=== PATIENT | female | born 1995 ===

== ENCOUNTER 2018-02-16 13:18 | Emergency (ER) | payer OTHER, SELFPAY ==
--- NOTE | 2018-02-16 13:44 | ED PDOC ---
HPI: Abdomen Time Seen by Provider: 02/16/18 13:36 Chief Complaint (Nursing): Abdominal Pain History Per: Patient Onset/Duration Of Symptoms: Days (2) Current Symptoms Are (Timing): Still Present Severity: Moderate Location Of Pain/Discomfort: RLQ Quality Of Discomfort: Unable To Describe Associated Symptoms: Nausea. denies: Fever, Vomiting, Diarrhea, Urinary Symptoms Exacerbating Factors: None Alleviating Factors: None Additional Complaint(s): Referred by PMD for RLQ pain x 2 days. Nausea but no vomiting or diarrhea. No dysuria or fever. LMP Feb 02 Past Medical History Vital Signs: Last Vital Signs Temp 98.3 F 02/16/18 13:30 Pulse 68 02/16/18 13:30 Resp 17 02/16/18 13:30 BP 117/83 02/16/18 13:30 Pulse Ox 98 02/16/18 13:44 - Medical History PMH: No Chronic Diseases Denies: HIV - Family History Family History: States: Unknown Family Hx - Home Medications Home Medications: Ambulatory Orders Medication Instructions Recorded Folic Acid 1 mg PO DAILY #0 tab 12/04/14 Multimineral/Multivitamin 1 tab PO DAILY #0 tab 12/04/14 [Therapeutic-M Tab] Thiamine [Vitamin B1 Tab] 100 mg PO DAILY #0 tab 12/04/14 oxyCODONE/Acetaminophen [Percocet 1 tab PO Q6H PRN #15 tab 12/04/14 5/325 mg Tab] - Allergies Allergies/Adverse Reactions: Allergies Allergy/AdvReac Type Severity Reaction Status Date / Time No Known Allergies Allergy Verified 02/16/18 13:29 Review of Systems ROS Statement: Except As Marked, All Systems Reviewed And Found Negative Gastrointestinal: Positive for: Nausea, Abdominal Pain Physical Exam - Reviewed Nursing Documentation Reviewed: Yes Vital Signs Reviewed: Yes - Physical Exam Appears: Positive for: Non-toxic, No Acute Distress Head Exam: Positive for: ATRAUMATIC, NORMAL INSPECTION, NORMOCEPHALIC Skin: Positive for: Normal Color, Warm, DRY Eye Exam: Positive for: EOMI, Normal appearance, PERRL ENT: Positive for: Normal ENT Inspection Neck: Positive for: Normal, Painless ROM Cardiovascular/Chest: Positive for: Regular Rate, Rhythm Respiratory: Positive for: CNT, Normal Breath Sounds Gastrointestinal/Abdominal: Positive for: Soft, Tenderness (Lower quads bilat.) Back: Positive for: Normal Inspection Extremity: Positive for: Normal ROM Neurologic/Psych: Positive for: Alert, Oriented - Laboratory Results Result Diagrams: 02/16/18 14:04 02/16/18 14:04 - ECG O2 Sat by Pulse Oximetry: 98 Disposition - Clinical Impression Clinical Impression: Abdominal pain - Patient ED Disposition Is Patient to be Admitted: Transfer of Care - Disposition Disposition: Transfer of Care Disposition Time: 14:50 Condition: FAIR Forms: Personal Style Finder (Stateless) Patient Signed Over To: Kerri Rao
[2018-02-16 14:09] LABS: BASO # 0.1 K/uL (0.0-0.2); BASO % 0.8 % (0.0-2.0); EOS # 0.2 K/uL (0.0-0.7); HEMOGLOBIN 13.3 g/dL (12.0-16.0); LYMPH # 2.9 K/uL (1.0-4.3); LYMPH % 36.5 % (20.0-40.0); MEAN CELL VOLUME 87.6 fl (81.0-99.0); MEAN CORPUSCULAR HEMOGLOBIN 30.4 pg (27.0-31.0); MEAN CORPUSCULAR HGB CONC 34.7 g/dL (33.0-37.0); MONO # 0.3 K/uL (0.0-0.8); MONO % 4.1 % (0.0-10.0); NEUT # 4.5 K/uL (1.8-7.0); NEUT % 56.6 % (50.0-75.0); NRBC % 0.1 % (0.0-0.0); RBC 4.39 Mil/uL (3.80-5.20); RED CELL DISTRIBUTION WIDTH 12.8 % (11.5-14.5)
[2018-02-16 14:27] LABS: ALB/GLOB RATIO 1.2 (1.0-2.1); ALBUMIN 4.3 g/dL (3.5-5.0); ALT/SGPT 64 U/L (9-52); AST/SGOT 55 U/L (14-36); BLOOD UREA NITROGEN 13 mg/dl (7-17); CALCIUM 9.4 mg/dL (8.4-10.2); GFR NON-AFRICAN AMERICAN > 60
[2018-02-16] MEDS ORDERED: Iohexol 300 100 ML IJ ONE (14:43)
[2018-02-16] MEDS ORDERED: Sodium Chloride 0.9% 50 ML IV ONE (14:44)
--- NOTE | 2018-02-16 15:08 | ED PDOC ---
- Laboratory Results Result Diagrams: 02/16/18 14:04 02/16/18 14:04 - ECG O2 Sat by Pulse Oximetry: 98 (RA) Pulse Ox Interpretation: Normal Medical Decision Making Medical Decision Making: Pt endoresed to me by Dr. Huber. Pt pending CT. PT stable and comfortable. Time: 1520 PROCEDURE: CT Abdomen and Pelvis with contrast HISTORY: Abd pain COMPARISON: None. TECHNIQUE: Contrast dose: 90 cc of Omnipaque Radiation dose: Total exam DLP = 332 mGy-cm. This CT exam was performed using one or more of the following dose reduction techniques: Automated exposure control, adjustment of the mA and/or kV according to patient size, and/or use of iterative reconstruction technique. FINDINGS: LOWER THORAX: Unremarkable. LIVER: Fatty liver. No gross lesion or ductal dilatation. GALLBLADDER AND BILE DUCTS: Unremarkable. PANCREAS: Unremarkable. No gross lesion or ductal dilatation. SPLEEN: Unremarkable. ADRENALS: Unremarkable. No mass. KIDNEYS AND URETERS: Unremarkable. No hydronephrosis. No solid mass. VASCULATURE: Unremarkable. No aortic aneurysm. BOWEL: Unremarkable. No obstruction. No gross mural thickening. APPENDIX: Normal appendix. PERITONEUM: Unremarkable. No free fluid. No free air. LYMPH NODES: Unremarkable. No enlarged lymph nodes. BLADDER: Unremarkable. REPRODUCTIVE: Bilateral adnexal soft tissue fullness -in this age group -probable benign physiological ovarian cysts are compatible with this appearance. Pelvic ultrasound more sensitive BONES: No acute fracture. OTHER FINDINGS: None. IMPRESSION: Probable bilateral adnexal/ ovarian cystic changes - in this age group. Consider elective pelvic -transabdominal and transvaginal ultrasound scanning for more sensitive assessment. Hepatic steatosis. Otherwise unremarkable Patient's CT shows bilateral and adnexal and ovarian cystic changes. Upon revaluation, patient is comfortable and vitals within normal limits. Patient tolerated PO. Her abdomen is soft and non-tender. She reports of continuous feeling of nausea and vomiting but feels comfortable going home. I gave referral to [facility] and explained the cystic changes on CT and discuses further with PMD for possible US. Patient will be discharged with 2 days supply Zofran. Return if pain and vomiting worsens or new symptoms develops. Scribe Attestation: Documented by Marissa Tineo, acting as a scribe for Kerri Rao MD Provider Scribe Attestation: All medical record entries made by the Scribe were at my direction and personally dictated by me. I have reviewed the chart and agree that the record accurately reflects my personal performance of the history, physical exam, medical decision making, and the department course for this patient. I have also personally directed, reviewed, and agree with the discharge instructions and disposition. Disposition - Clinical Impression Clinical Impression: Abdominal pain, Fatty liver, Ovarian cyst - Disposition Referrals: [facility] [Outside] Disposition Time: 18:06 Condition: IMPROVED Additional Instructions: Your workup in the emergency department today showed normal vital signs. Your labs showed slightly elevated liver enzymes. The CAT scan of your abdomen and pelvis showed Hepatic Steatosis (fatty liver) and adnexal cysts. Neither of these conditions are a medical emergency and can be followed up on and managed by your primary medical doctor. Please follow up as referred in one to two weeks. Take the medications prescribed for continued vomiting. If symptoms worsen or new symptoms develop (fever, severe pain, vomiting for 48 hours), return to the emergency department. Prescriptions: Ondansetron HCl [Zofran] 4 mg PO BID #4 tablet Forms: [employer] (Cameroonian) Print Language: HUNGARIAN
--- NOTE | 2018-02-16 15:23 | CT ---
Date of service: 02/16/2018 PROCEDURE: CT Abdomen and Pelvis with contrast HISTORY: Abd pain COMPARISON: None. TECHNIQUE: Contrast dose: 90 cc of Omnipaque Radiation dose: Total exam DLP = 332 mGy-cm. This CT exam was performed using one or more of the following dose reduction techniques: Automated exposure control, adjustment of the mA and/or kV according to patient size, and/or use of iterative reconstruction technique. FINDINGS: LOWER THORAX: Unremarkable. LIVER: Fatty liver. No gross lesion or ductal dilatation. GALLBLADDER AND BILE DUCTS: Unremarkable. PANCREAS: Unremarkable. No gross lesion or ductal dilatation. SPLEEN: Unremarkable. ADRENALS: Unremarkable. No mass. KIDNEYS AND URETERS: Unremarkable. No hydronephrosis. No solid mass. VASCULATURE: Unremarkable. No aortic aneurysm. BOWEL: Unremarkable. No obstruction. No gross mural thickening. APPENDIX: Normal appendix. PERITONEUM: Unremarkable. No free fluid. No free air. LYMPH NODES: Unremarkable. No enlarged lymph nodes. BLADDER: Unremarkable. REPRODUCTIVE: Bilateral adnexal soft tissue fullness -in this age group -probable benign physiological ovarian cysts are compatible with this appearance. Pelvic ultrasound more sensitive BONES: No acute fracture. OTHER FINDINGS: None. IMPRESSION: Probable bilateral adnexal/ ovarian cystic changes - in this age group. Consider elective pelvic -transabdominal and transvaginal ultrasound scanning for more sensitive assessment. Hepatic steatosis. Otherwise unremarkable
[2018-02-16 18:11] VITALS: BP 132/74; PULSE 70; RESP 16; TEMP 98
[2018-02-16 19:39] VITALS: O2SAT 98
== END 2018-02-16 18:10 | disposition home or self-care (01) ==
LOC: H.ER 13:18
DX: R10.9 Unspecified abdominal pain (principal); N83.209 Unspecified ovarian cyst, unspecified side; K76.0 Fatty (change of) liver, not elsewhere classified
CPT/HCPCS: 74177; 80053; 81025; 85025; 99283; Q9967

== ENCOUNTER 2018-11-13 14:20 | Emergency (ER) | payer SELFPAY ==
[2018-11-13 14:28] VITALS: O2SAT 98
[2018-11-13 15:15] LABS: BASO # 0.1 K/uL (0.0-0.2); BASO % 1.2 % (0.0-2.0); EOS # 0.2 K/uL (0.0-0.7); EOS % 3.8 % (0.0-4.0); HEMOGLOBIN 13.8 g/dL (12.0-16.0); LYMPH # 2.7 K/uL (1.0-4.3); LYMPH % 43.2 % (20.0-40.0); MEAN CELL VOLUME 87.2 fl (81.0-99.0); MEAN CORPUSCULAR HEMOGLOBIN 30.1 pg (27.0-31.0); MEAN CORPUSCULAR HGB CONC 34.6 g/dL (33.0-37.0); MEAN PLATELET VOLUME 7.7 fl (7.2-11.7); MONO # 0.4 K/uL (0.0-0.8); MONO % 6.8 % (0.0-10.0); NEUT # 2.8 K/uL (1.8-7.0); NRBC % 0.1 % (0.0-0.0); RBC 4.59 Mil/uL (3.80-5.20); RED CELL DISTRIBUTION WIDTH 12.4 % (11.5-14.5); WHITE BLOOD COUNT 6.3 K/uL (4.8-10.8)
[2018-11-13 15:20] LABS: PROTHROMBIN TIME 11.1 Seconds (9.8-13.1)
--- NOTE | 2018-11-13 15:21 | ED PDOC ---
HPI: Female Pain Time Seen by Provider: 11/13/18 14:30 Chief Complaint (Nursing): Female Genitourinary Chief Complaint (Provider): Female Genitourinary History Per: Patient History/Exam Limitations: no limitations Onset/Duration Of Symptoms: Persistent (x3 weeks) Current Symptoms Are (Timing): Still Present Additional Complaint(s): 23 year old female presents to the emergency department with a complaint of light and heavy vaginal bleeding ongoing since 10/26/18. She reports associated pelvic pain and lightheadedness. Patient denies any shortness of breath, dyspnea on exertion, or bleeding elsewhere. Additionally, she reports mild left-sided vaginal irritation and swelling. Of note, the patient started a new control 1 1/2 months ago but has not had menses since 09/2018. Last normal menses was noted on 08/29/18. Past Medical History Reviewed: Historical Data, Nursing Documentation, Vital Signs Vital Signs: Last Vital Signs Temp 98 F 11/13/18 14:25 Pulse 84 11/13/18 14:25 Resp 20 11/13/18 14:25 BP 115/78 11/13/18 14:25 Pulse Ox 98 11/13/18 14:25 Primary Care Provider: FAMILY PROVIDER,NO - Medical History PMH: Denies: HIV, Chronic Kidney Disease Other PMH: ovarian cyst - Surgical History Surgical History: No Surg Hx - Family History Family History: States: No Known Family Hx - Social History Current smoker - smoking cessation education provided: Yes Alcohol: Social Drugs: Cannabis - Home Medications Home Medications: Ambulatory Orders Medication Instructions Recorded Folic Acid 1 mg PO DAILY #0 tab 12/04/14 Multimineral/Multivitamin 1 tab PO DAILY #0 tab 12/04/14 [Therapeutic-M Tab] Thiamine [Vitamin B1 Tab] 100 mg PO DAILY #0 tab 12/04/14 oxyCODONE/Acetaminophen [Percocet 1 tab PO Q6H PRN #15 tab 12/04/14 5/325 mg Tab] Ondansetron HCl [Zofran] 4 mg PO BID #4 tablet 02/16/18 - Allergies Allergies/Adverse Reactions: Allergies Allergy/AdvReac Type Severity Reaction Status Date / Time No Known Allergies Allergy Verified 02/16/18 13:29 Review of Systems ROS Statement: Except As Marked, All Systems Reviewed And Found Negative Cardiovascular: Positive for: Light Headedness Respiratory: Negative for: Shortness of Breath, SOB with Exertion Genitourinary Female: Positive for: Vaginal Bleeding (light/heavy), Pelvic Pain, Other (left vaginal irritation). Negative for: Rash (or lesions) Physical Exam - Reviewed Nursing Documentation Reviewed: Yes Vital Signs Reviewed: Yes - Physical Exam Appears: Positive for: Well, No Acute Distress Head Exam: Positive for: ATRAUMATIC, NORMOCEPHALIC Skin: Positive for: Warm, Dry Eye Exam: Positive for: EOMI, PERRL Respiratory: Negative for: Accessory Muscle Use, Respiratory Distress Gastrointestinal/Abdominal: Positive for: Soft, Tenderness (suprapubic). Negative for: Mass, Distended, Guarding, Rebound Pelvic Exam: Positive for: No Cerv. Motion Tender, Blood (present in canal), Tender Adnexa (bilateral), Tender Uterus (bilateral), Other (survey and mapping technician, Chondra, present as sterilisation technician: mild edema on anterior left labia minora; erythema on bilateral labia majora). Negative for: Discharge, Lesions Back: Positive for: Normal Inspection. Negative for: L CVA Tenderness, R CVA Te nderness Lymphatic: Negative for: Inguinal Node Tenderness Neurological/Psych: Positive for: Awake, Alert. Negative for: Motor/Sensory Deficits - Laboratory Results Result Diagrams: 11/13/18 15:06 11/13/18 15:06 - ECG O2 Sat by Pulse Oximetry: 98 (RA) Pulse Ox Interpretation: Normal Medical Decision Making Medical Decision Making: Initial Impression: abnormal vaginal bleed; vaginitis Differential diagnosis includes but not limited to: fibroids; ovarian cysts; anemia Initial Plan: * Labs * US transvaginal * Accession No. : [id number] Patient Name / ID : HA [id number] / [id number] Exam Date : 11/13/2018 16:16:07 ( Approved ) Study Comment : Sex / Age : F / 23Y Creator : Eric Sloan MD Dictator : Eric Sloan MD Stuffing Machine Operator : Assistant Professor Of Physics : Eric Sloan MD Approver2 : Report Date : 11/13/2018 16:35:29 My Comment : Date of service: 11/13/2018 HISTORY: vaginal bleed pelvic pain COMPARISON: None available. TECHNIQUE: Transvaginal FINDINGS: UTERUS: Measures 5.2 x 2.6 x 4.0 cm. Retroverted. No fibroid or other mass lesion seen. ENDOMETRIUM: Measures 2 mm in diameter. Unremarkable. CERVIX: No cervical abnormality identified. RIGHT OVARY: Measures 2.6 x 1.5 x 2.4 cm. No solid mass. Normal flow. LEFT OVARY: Measures 2.7 x 1.4 x 3.0 cm. No solid mass. Normal flow. FREE FLUID: No significant free fluid noted. OTHER FINDINGS: None. IMPRESSION: Unremarkable pelvic ultrasound. 1700 pt findings. Pt stable for discharge. Advised to clinic options for OCPs and informed of possibility that the use of OCPs can initially cause irregular bleeding and may require more time even up to a year for stabilization of hormonal cycling. Scribe Attestation: Documented by Olivia Montero, acting as a scribe for Lisa Brarera MD. Provider Scribe Attestation: All medical record entries made by the Scribe were at my direction and personally dictated by me. I have reviewed the chart and agree that the record accurately reflects my personal performance of the history, physical exam, medical decision making, and the department course for this patient. I have also personally directed, reviewed, and agree with the discharge instructions and disposition. Disposition - Clinical Impression Clinical Impression: Abnormal vaginal bleeding - Disposition Referrals: [facility] [Outside] Disposition: Routine/Home Disposition Time: 18:00 Condition: STABLE Instructions: Dysfunctional Uterine Bleeding (ED)
[2018-11-13 15:23] LABS: PARTIAL THROMBOPLASTIN TIME 34.7 Seconds (25.6-37.1)
[2018-11-13 15:28] LABS: ALB/GLOB RATIO 1.3 (1.0-2.1); ALBUMIN 4.7 g/dL (3.5-5.0); ALT/SGPT 49 U/L (9-52); AST/SGOT 43 U/L (14-36); BLOOD UREA NITROGEN 12 mg/dl (7-17); CALCIUM 9.2 mg/dL (8.4-10.2); GFR NON-AFRICAN AMERICAN > 60
--- NOTE | 2018-11-13 16:39 | US ---
Date of service: 11/13/2018 HISTORY: vaginal bleed pelvic pain COMPARISON: None available. TECHNIQUE: Transvaginal FINDINGS: UTERUS: Measures 5.2 x 2.6 x 4.0 cm. Retroverted. No fibroid or other mass lesion seen. ENDOMETRIUM: Measures 2 mm in diameter. Unremarkable. CERVIX: No cervical abnormality identified. RIGHT OVARY: Measures 2.6 x 1.5 x 2.4 cm. No solid mass. Normal flow. LEFT OVARY: Measures 2.7 x 1.4 x 3.0 cm. No solid mass. Normal flow. FREE FLUID: No significant free fluid noted. OTHER FINDINGS: None. IMPRESSION: Unremarkable pelvic ultrasound.
[2018-11-13 19:19] VITALS: BP 128/64; PULSE 75; RESP 16; TEMP 97.7
== END 2018-11-13 19:18 | disposition home or self-care (01) ==
LOC: H.ER 14:20
DX: N93.9 Abnormal uterine and vaginal bleeding, unspecified (principal); F17.200 Nicotine dependence, unspecified, uncomplicated